=== PATIENT | male | born 1955 | race Two or more races ===

== ENCOUNTER 2020-11-22 15:13 | Inpatient (IN) | payer BC, MEDICARE ==
[~2020-11-22] VITALS: Ht 175.3 cm; Wt 72.0 kg
[2020-11-22] MEDS ORDERED: normal saline 1000ML IV soln IV ONE (15:35)
[2020-11-22] MEDS ORDERED: dexamethasone sod phosphate 10mg/ml inj IV STA (15:35)
[2020-11-22] MEDS ORDERED: REMDESIVIR INJ 200 MG in normal saline 100ml IV soln 60 ML IV ONE (15:35)
[2020-11-22] MEDS ORDERED: azithromycin/NS 500mg/250ml 250 ML IV ONE (15:35)
[2020-11-22] MEDS ORDERED: CefTRIAXone 2gm/D5W 50ml BAG 50 ML IV ONE (15:35)
[2020-11-22] MEDS ORDERED: acetaminophen 325mg tablet PO STA (15:35)
[2020-11-22] MEDS ORDERED: LORazepam 2 mg/ml vial IV ONE (16:35)
[2020-11-22] MEDS ORDERED: acetaminophen 325mg tablet PO PRN (16:45)
[2020-11-22] MEDS ORDERED: magnesium hydroxide 30ml (MOM) UD suspension PO PRN (16:45)
[2020-11-22] MEDS ORDERED: mag hydrox/Alum hydrox/simeth 30ml oral suspension PO PRN (16:45)
[2020-11-22] MEDS ORDERED: ondansetron/PF 4mg/2ml inj IV PRN (16:45)
[2020-11-22] MEDS ORDERED: morphine 2 MG/ML inj. syringe IV PRN ×2 (16:45)
[2020-11-22 16:51] LABS: BASOPHILS % (AUTO) 0.2 % (0-1); EOSINOPHILS % (AUTO) 0.1 % (0-6); LYMPHOCYTES # (AUTO) 0.6 X10'3 (1.1-4.8); LYMPHOCYTES % (AUTO) 6.1 % (21-51); MEAN CORPUSCULAR HEMOGLOBIN 32.3 PG (27.0-31.0); MEAN CORPUSCULAR HGB CONC 35.5 g/dL (33.0-36.5); MEAN CORPUSCULAR VOLUME 90.9 FL (78-98); MEAN PLATELET VOLUME 7.9 FL (7.4-10.4); MONOCYTES # (AUTO) 0.6 X10'3 (0-0.9); MONOCYTES % (AUTO) 6.3 % (2-12); NEUTROPHILS # (AUTO) 8.6 X10'3 (1.8-7.7); NEUTROPHILS % (AUTO) 87.3 % (42-75); PLATELET COUNT 327 X10'3 (140-440); RED BLOOD COUNT 4.95 X10'6 (4.70-6.10); WHITE BLOOD COUNT 9.8 X10'3 (4.5-11.0)
[2020-11-22 16:53] LABS: D-DIMER 0.55 MG/L FEU (0-0.50)
[2020-11-22] MEDS ORDERED: NO HOME MEDS (16:54)
[2020-11-22 16:58] LABS: ALANINE AMINOTRANSFERASE 75 U/L (12-78); ALBUMIN 2.9 G/DL (3.4-5.0); ALBUMIN/GLOBULIN RATIO 0.7 (1.1-1.5); ALKALINE PHOSPHATASE 146 IU/L (46-116); ANION GAP 10 (8-16); BILIRUBIN,TOTAL 1.1 MG/DL (0.1-1.0); BLOOD UREA NITROGEN 15 MG/DL (7-18); BUN/CREATININE RATIO 13.2 (5.4-32.0); C-REACTIVE PROTEIN 7.59 MG/DL (0.0-0.5); CALCIUM 8.4 MG/DL (8.5-10.1); CHLORIDE 101 MMOL/L (99-107); CREATININE 1.14 MG/DL (0.60-1.10); GLUCOSE 112 MG/DL (70-104); SODIUM 134 MMOL/L (135-145); TOTAL PROTEIN 7.3 G/DL (6.4-8.2); eGFR 64 ML/MIN
[2020-11-22 17:01] LABS: ASPARTATE AMINO TRANSFERASE 72 U/L (10-37); POTASSIUM 4.3 MMOL/L (3.5-5.1)
--- NOTE | 2020-11-22 18:35 | NUR ---
pt moved to room 6
[2020-11-22] MEDS: LORazepam 1 MG tablet PO PRN (19:21)
[2020-11-22] MEDS: BUDESONIDE 180 MCG AER.POW.BA INH SCH (19:34)
[2020-11-22] MEDS: dextrose 5%-1/2 normal saline 1,000 ML IV SCH (19:46)
--- NOTE | 2020-11-22 19:50 | NUR ---
patient placed in hospital bed, no concerns at this time from patient
[2020-11-22] MEDS: docusate sod 100mg capsule PO SCH (20:00)
[2020-11-22] MEDS ORDERED: dexamethasone sod phosphate 10mg/ml inj IV SCH (20:00)
[2020-11-22] MEDS: dexamethasone 6 MG in NS 50ml IV soln IV SCH (20:55)
[2020-11-23] MEDS: ALBUTEROL INHALER 1 PUFF/90 MCG INHALER IH PRN (03:21)
[2020-11-23 07:38] LABS: BASOPHILS % (AUTO) 0.2 % (0-1); EOSINOPHILS % (AUTO) 0 % (0-6); HEMATOCRIT 42.2 % (42.0-52.0); HEMOGLOBIN 14.3 g/dl (14.0-17.9); LYMPHOCYTES # (AUTO) 0.4 X10'3 (1.1-4.8); LYMPHOCYTES % (AUTO) 5.5 % (21-51); MEAN CORPUSCULAR HEMOGLOBIN 31.4 PG (27.0-31.0); MEAN CORPUSCULAR HGB CONC 33.9 g/dL (33.0-36.5); MEAN CORPUSCULAR VOLUME 92.6 FL (78-98); MEAN PLATELET VOLUME 7.3 FL (7.4-10.4); MONOCYTES # (AUTO) 0.5 X10'3 (0-0.9); MONOCYTES % (AUTO) 7.3 % (2-12); NEUTROPHILS # (AUTO) 6.3 X10'3 (1.8-7.7); PLATELET COUNT 323 X10'3 (140-440); RED BLOOD COUNT 4.55 X10'6 (4.70-6.10); WHITE BLOOD COUNT 7.2 X10'3 (4.5-11.0)
[2020-11-23] MEDS: docusate sod 100mg capsule PO SCH ×2 (08:00→20:18)
[2020-11-23] MEDS: enoxaparin 40mg/0.4ml syringe SUBCUT SCH ×2 (08:00→09:51)
[2020-11-23 08:04] LABS: ALBUMIN 2.4 G/DL (3.4-5.0); ANION GAP 9 (8-16); BLOOD UREA NITROGEN 16 MG/DL (7-18); BUN/CREATININE RATIO 15.5 (5.4-32.0); CALCIUM 7.8 MG/DL (8.5-10.1); CHLORIDE 107 MMOL/L (99-107); CREATININE 1.03 MG/DL (0.60-1.10); GLUCOSE 130 MG/DL (70-104); POTASSIUM 4.2 MMOL/L (3.5-5.1); SODIUM 140 MMOL/L (135-145); TOTAL CARBON DIOXIDE 24.3 MMOL/L (24-32); eGFR 72 ML/MIN
[2020-11-23] MEDS: dexamethasone 6 MG in NS 50ml IV soln IV SCH ×2 (08:26→20:18)
[2020-11-23] MEDS: dextrose 5%-1/2 normal saline 1,000 ML IV SCH ×2 (08:26→09:18)
[2020-11-23] MEDS: BUDESONIDE 180 MCG AER.POW.BA INH SCH ×2 (08:27→20:27)
--- NOTE | 2020-11-23 08:49 | NUR ---
Recieved patient report from Rizwana SEBASTIAN in ED
[2020-11-23] MEDS: LORazepam 1 MG tablet PO PRN ×2 (09:18→22:26)
[2020-11-23 09:39] VITALS: BP 141/83
[2020-11-23] MEDS: guaiFENesin/DM 10ml UD oral syrup PO PRN (09:51)
[2020-11-23 10:00] VITALS: BP 129/83
[2020-11-23] MEDS: REMDESIVIR INJ 100 MG in normal saline 100ml IV soln 80 ML IV SCH (11:38)
[2020-11-23 14:00] VITALS: BP 139/77
[2020-11-23 22:00] VITALS: BP 129/74
[2020-11-24 02:00] VITALS: BP 127/76
[2020-11-24] MEDS: ALBUTEROL INHALER 1 PUFF/90 MCG INHALER IH PRN (02:02)
[2020-11-24 06:00] VITALS: BP 124/68
--- NOTE | 2020-11-24 06:38 | NUR ---
Patient in room [facility] 4022[facility]. I have received report from SURG/BUSINESS INTELLIGENCE DEVELOPER and had the opportunity to ask questions and assume patient care.
[2020-11-24 07:49] LABS: BASOPHILS % (AUTO) 0.1 % (0-1); EOSINOPHILS % (AUTO) 0 % (0-6); HEMATOCRIT 41.9 % (42.0-52.0); LYMPHOCYTES # (AUTO) 0.5 X10'3 (1.1-4.8); LYMPHOCYTES % (AUTO) 4.9 % (21-51); MEAN CORPUSCULAR HGB CONC 33.5 g/dL (33.0-36.5); MEAN CORPUSCULAR VOLUME 92.6 FL (78-98); MEAN PLATELET VOLUME 7.9 FL (7.4-10.4); MONOCYTES # (AUTO) 0.9 X10'3 (0-0.9); MONOCYTES % (AUTO) 8.4 % (2-12); NEUTROPHILS # (AUTO) 9.6 X10'3 (1.8-7.7); NEUTROPHILS % (AUTO) 86.6 % (42-75); PLATELET COUNT 380 X10'3 (140-440); RED BLOOD COUNT 4.52 X10'6 (4.70-6.10); RED CELL DISTRIBUTION WIDTH 13.6 % (11.5-14.5)
[2020-11-24] MEDS: docusate sod 100mg capsule PO SCH ×2 (08:00→19:52)
[2020-11-24 08:10] LABS: ALBUMIN 2.3 G/DL (3.4-5.0); ANION GAP 11 (8-16); BLOOD UREA NITROGEN 19 MG/DL (7-18); BUN/CREATININE RATIO 18.8 (5.4-32.0); C-REACTIVE PROTEIN 4.58 MG/DL (0.0-0.5); CALCIUM 8.2 MG/DL (8.5-10.1); CHLORIDE 108 MMOL/L (99-107); CREATININE 1.01 MG/DL (0.60-1.10); GLUCOSE 134 MG/DL (70-104); POTASSIUM 4.2 MMOL/L (3.5-5.1); SODIUM 141 MMOL/L (135-145); TOTAL CARBON DIOXIDE 22.4 MMOL/L (24-32); eGFR 74 ML/MIN
[2020-11-24 09:40] LABS: D-DIMER 0.43 MG/L FEU (0-0.50)
[2020-11-24] MEDS: dexamethasone 6 MG in NS 50ml IV soln IV SCH ×2 (09:49→19:51)
[2020-11-24] MEDS: REMDESIVIR INJ 100 MG in normal saline 100ml IV soln 80 ML IV SCH (09:54)
[2020-11-24] MEDS: enoxaparin 40mg/0.4ml syringe SUBCUT SCH (09:56)
[2020-11-24 10:00] VITALS: BP 117/73
[2020-11-24] MEDS: BUDESONIDE 180 MCG AER.POW.BA INH SCH ×2 (10:02→19:50)
[2020-11-24 14:00] VITALS: BP 135/80
[2020-11-24] MEDS: guaiFENesin/DM 10ml UD oral syrup PO PRN (17:38)
[2020-11-24 18:00] VITALS: BP 138/82
--- NOTE | 2020-11-24 18:31 | NUR ---
Problems reprioritized. Patient report given, questions answered & plan of care reviewed with JAZ HOOD.
[2020-11-24] MEDS: LORazepam 1 MG tablet PO PRN (19:51)
[2020-11-24] MEDS: acetaminophen 325mg tablet PO PRN (19:52)
[2020-11-24 22:00] VITALS: BP 117/78
[2020-11-25 02:00] VITALS: BP 130/74
[2020-11-25] MEDS: acetaminophen 325mg tablet PO PRN (05:48)
[2020-11-25] MEDS: guaiFENesin/DM 10ml UD oral syrup PO PRN (05:53)
--- NOTE | 2020-11-25 06:31 | NUR ---
Problems reprioritized. Patient report given, questions answered & plan of care reviewed with Brian SEBASTIAN.
[2020-11-25 07:17] VITALS: BP 128/82
[2020-11-25] MEDS: docusate sod 100mg capsule PO SCH (07:53)
[2020-11-25] MEDS: dexamethasone 6 MG in NS 50ml IV soln IV SCH (07:53)
[2020-11-25] MEDS: REMDESIVIR INJ 100 MG in normal saline 100ml IV soln 80 ML IV SCH (07:53)
[2020-11-25] MEDS: enoxaparin 40mg/0.4ml syringe SUBCUT SCH (07:54)
[2020-11-25 08:43] LABS: BASOPHILS % (AUTO) 0.2 % (0-1); EOSINOPHILS % (AUTO) 0 % (0-6); HEMATOCRIT 42.1 % (42.0-52.0); HEMOGLOBIN 14.5 g/dl (14.0-17.9); LYMPHOCYTES # (AUTO) 0.4 X10'3 (1.1-4.8); LYMPHOCYTES % (AUTO) 4.3 % (21-51); MEAN CORPUSCULAR HEMOGLOBIN 31.9 PG (27.0-31.0); MEAN CORPUSCULAR HGB CONC 34.4 g/dL (33.0-36.5); MEAN CORPUSCULAR VOLUME 92.8 FL (78-98); MEAN PLATELET VOLUME 7.8 FL (7.4-10.4); MONOCYTES # (AUTO) 0.8 X10'3 (0-0.9); MONOCYTES % (AUTO) 8.5 % (2-12); NEUTROPHILS # (AUTO) 8.4 X10'3 (1.8-7.7); PLATELET COUNT 433 X10'3 (140-440); RED BLOOD COUNT 4.54 X10'6 (4.70-6.10); RED CELL DISTRIBUTION WIDTH 13.7 % (11.5-14.5); WHITE BLOOD COUNT 9.6 X10'3 (4.5-11.0)
[2020-11-25 08:52] LABS: ALBUMIN 2.2 G/DL (3.4-5.0); ANION GAP 11 (8-16); BLOOD UREA NITROGEN 23 MG/DL (7-18); BUN/CREATININE RATIO 23.2 (5.4-32.0); C-REACTIVE PROTEIN 2.03 MG/DL (0.0-0.5); CALCIUM 8.1 MG/DL (8.5-10.1); CHLORIDE 107 MMOL/L (99-107); CREATININE 0.99 MG/DL (0.60-1.10); D-DIMER 0.49 MG/L FEU (0-0.50); GLUCOSE 140 MG/DL (70-104); POTASSIUM 4.3 MMOL/L (3.5-5.1); SODIUM 140 MMOL/L (135-145); TOTAL CARBON DIOXIDE 21.6 MMOL/L (24-32); eGFR 76 ML/MIN
--- NOTE | 2020-11-25 09:42 | NUR ---
Initial: Pt admit DX COVID-19, acute respiratory failure w/ hypoxia per EMR. PO ~50% avg regular diet fluctuating on 3L NC per EMR; partially meeting needs. RD recommends Ensure Enlive BIDBD and Ensure High Protein WL to better meet needs; notified. LBM 11/24 receiving routine colace. Will continue to monitor for further nutrition intervention needs. Rec: 1. continue regular diet; encourage PO 2. Ensure Enlive BIDBD/Ensure High Protein WL; pending MD verification in EMR 3. routine bowel care 4. weekly wts Addendum: 11/25/20 at [address] Amended: Links added.
[2020-11-25 11:13] VITALS: BP 134/81
[2020-11-25] MEDS ORDERED: lactose-reduced food (Ensure High Protein) 237ml bottle PO SCH (12:30)
[2020-11-25] MEDS ORDERED: DEXA4TAB67 PO (13:58)
[2020-11-25] MEDS ORDERED: LORA-269 PO (13:58)
--- NOTE | 2020-11-25 15:38 | NUR ---
O2 Sat at rest on room air:__91_% If below 89%: Recovery O2 Sat at rest on ___LPM:___%:___% via (mask/nasal cannula, etc..) No further documentation is necessary. If O2 Sat did not drop below 89% on room air,ambulate patient on room air. O2 Sat while ambulating on room air:_91__% Recovery O2 Sat while ambulating on ___LPM:___% No further documentation is necessary. If patient does not drop below 89% while ambulating, he/she does not qualify for home O2.
[2020-11-25] MEDS ORDERED: lactose-reduced food (Ensure Enlive) - 237ml bottle PO SCH (17:30)
== END 2020-11-25 14:40 | disposition home or self-care (01) | DRG 177 ==
LOC: ER 15:13 → ED HOLD 16:48 → EDBEDREQ 11-23 08:27 → ORTHO 4S 11-23 09:01
PROVIDERS: ADMIT Internal Medicine; ATTEND Internal Medicine
PROC: XW033E5 Introduction of Remdesivir Anti-infective into Peripheral Vein, Percutaneous Approach, New Technology Group 5 (ICD-10-PCS; principal; 2020-11-22)
DX: U07.1 COVID-19 (principal); J12.82 Pneumonia due to coronavirus disease 2019; J96.01 Acute respiratory failure with hypoxia; J45.31 Mild persistent asthma with (acute) exacerbation; J22 Unspecified acute lower respiratory infection; F41.9 Anxiety disorder, unspecified; R79.82 Elevated C-reactive protein (CRP); Z99.81 Dependence on supplemental oxygen
CPT/HCPCS: 36415; 71045; 80048; 80053; 83605; 83880; 84145; 85025; 85379; 86140; 87040; 87081; 93005; 94760; 96365; 96375; 99291; G0378; J0456; J0696; J1100; J1650; J2060; J7030